=== PATIENT | male | born 1970 | race Caucasian/White ===

== ENCOUNTER 2021-04-22 06:30 | Emergency (ER) | payer MEDICARE, MEDICAID ==
[2021-04-22 08:02] LABS: INR-International Normal Ratio 1.5; Prothrombin Time 18.2 sec (12.0-14.7)
[2021-04-22 08:03] LABS: PTT 41.3 sec (22.9-36.1)
[2021-04-22 08:06] LABS: Hemoglobin 13.1 g/dL (14.0-18.0); Mean Corpuscular HGB CONC 32.5 g/dL (32.0-36.0); Mean Corpuscular Hemoglobin 33.8 pg (27.0-31.0); Mean Platelet Volume 8.5 fL (7.4-10.4); Platelet Count 248 thou/uL (130-400); RBC Distribution Width 16.6 % (11.5-14.5); Red Blood Cell (RBC) Count 3.89 mill/uL (4.70-6.10); White Blood Cell (WBC) Count 7.2 thou/uL (4.8-10.8)
[2021-04-22 08:12] LABS: ALT (SGPT) 64 U/L (8-55); AST (SGOT) 43 U/L (5-34); Albumin 3.4 g/dL (3.5-5.0); Alkaline Phosphatase 26 U/L (40-110); Anion Gap 15 mmol/L (10-20); BUN (Urea Nitrogen) 44 mg/dL (8.4-25.7); Bilirubin, Total 0.4 mg/dL (0.2-1.2); CK (CPK) 159 U/L (30-200); Calc. Creatinine Clearance 0 mL/min (70-130); Calcium 9.2 mg/dL (7.8-10.44); Carbon Dioxide 31 mmol/L (22-29); Chloride 113 mmol/L (98-107); Globulin 4.8 g/dL (2.4-3.5); Glucose 107 mg/dL (70-105); Potassium 4.1 mmol/L (3.5-5.1); Protein, Total 8.2 g/dL (6.0-8.3); Sodium 155 mmol/L (136-145)
[2021-04-22 08:28] LABS: Band 4 % (5-11); Lymphocytes 18 % (21-51); MDiff Complete? YES; Monocytes 8 % (0-10); Myelocyte 1 % (0-0); Neutrophil 69 % (42-75)
[2021-04-22 08:29] LABS: CKMB 1.3 ng/mL (0-6.6)
== END 2021-04-22 10:30 | disposition short-term general hospital (02) ==
LOC: BURERS 06:30
DX: E87.0 Hyperosmolality and hypernatremia (principal); N19 Unspecified kidney failure; R79.89 Other specified abnormal findings of blood chemistry; K13.0 Diseases of lips; I10 Essential (primary) hypertension; E03.9 Hypothyroidism, unspecified; E78.5 Hyperlipidemia, unspecified; N40.0 Benign prostatic hyperplasia without lower urinary tract symptoms; Z87.01 Personal history of pneumonia (recurrent); Z79.899 Other long term (current) drug therapy
CPT/HCPCS: 70450; 71045; 80053; 82550; 82553; 83735; 83880; 84484; 85025; 85610; 85730; 93005; 94760

== ENCOUNTER 2021-05-08 02:06 | Emergency (ER) | payer MEDICARE, MEDICAID ==
[2021-05-08 02:47] LABS: #Basophils 0.1 thou/uL (0.0-0.2); #Lymphocytes 0.5 thou/uL (1.20-3.40); #Monocytes 0.8 thou/uL (0.11-0.59); %Basophils 0.6 % (0.0-1.0); %Eosinophils 0.2 % (0.0-10.0); %Lymphocytes 3.4 % (21.0-51.0); %Monocytes 5.9 % (0.0-10.0); %Neutrophils 89.8 % (42.0-75.0); Hemoglobin 10.5 g/dL (14.0-18.0); Mean Corpuscular HGB CONC 33.9 g/dL (32.0-36.0); Mean Corpuscular Hemoglobin 35.2 pg (27.0-31.0); Mean Platelet Volume 8.3 fL (7.4-10.4); Platelet Count 227 thou/uL (130-400); RBC Distribution Width 15.7 % (11.5-14.5); Red Blood Cell (RBC) Count 2.98 mill/uL (4.70-6.10); White Blood Cell (WBC) Count 13.3 thou/uL (4.8-10.8)
[2021-05-08 02:57] LABS: Anion Gap 20 mmol/L (10-20); BUN (Urea Nitrogen) 29 mg/dL (8.4-25.7); Calc. Creatinine Clearance 0 mL/min (70-130); Calcium 9.1 mg/dL (7.8-10.44); Carbon Dioxide 22 mmol/L (22-29); Chloride 102 mmol/L (98-107); Glucose 176 mg/dL (70-105); Potassium 4.2 mmol/L (3.5-5.1); Sodium 140 mmol/L (136-145)
[2021-05-08 03:28] LABS: Platelet Morphology Comment Appears Adequate; RBC Morphology Normal
[2021-05-08] MEDS ORDERED: Ondansetron PF 4 MG/2 ML Vial ONE (03:39)
[2021-05-08 03:59] LABS: INR-International Normal Ratio 1.3; Prothrombin Time 16.4 sec (12.0-14.7)
[2021-05-08 04:00] LABS: PTT 42.4 sec (22.9-36.1)
[2021-05-08 04:51] LABS: SARS-CoV-2 NAA Rapid Test Not Detected (NotDetected)
== END 2021-05-08 04:18 | disposition short-term general hospital (02) ==
LOC: BURERS 02:06
DX: S36.81XA Injury of peritoneum, initial encounter (principal); I12.9 Hypertensive chronic kidney disease with stage 1 through stage 4 chronic kidney disease, or unspecified chronic kidney disease; N18.9 Chronic kidney disease, unspecified; E03.9 Hypothyroidism, unspecified; E78.5 Hyperlipidemia, unspecified; Z86.718 Personal history of other venous thrombosis and embolism; Z79.899 Other long term (current) drug therapy; Z20.822 Contact with and (suspected) exposure to COVID-19; W06.XXXA Fall from bed, initial encounter
CPT/HCPCS: 70450; 72125; 72192; 80048; 85025; 85610; 85730; U0002; 36415; 51702; 96374; J2405

== ENCOUNTER 2022-01-04 10:19 | Emergency (ER) | payer MEDICARE, MEDICAID ==
[2022-01-04] MEDS ORDERED: Ondansetron PF 4 MG/2 ML Vial ONE (11:15)
[2022-01-04 11:20] LABS: #Basophils 0.1 thou/uL (0.0-0.2); #Lymphocytes 0.8 thou/uL (1.20-3.40); #Monocytes 0.8 thou/uL (0.11-0.59); #Neutrophils 12.7 thou/uL (1.40-6.50); %Basophils 0.8 % (0.0-1.0); %Lymphocytes 5.2 % (21.0-51.0); %Monocytes 5.6 % (0.0-10.0); %Neutrophils 88.3 % (42.0-75.0); Mean Corpuscular HGB CONC 33.6 g/dL (32.0-36.0); Mean Corpuscular Hemoglobin 35.8 pg (27.0-31.0); Mean Platelet Volume 7.3 fL (7.4-10.4); Platelet Count 238 thou/uL (130-400); RBC Distribution Width 13.8 % (11.5-14.5); Red Blood Cell (RBC) Count 3.91 mill/uL (4.70-6.10); White Blood Cell (WBC) Count 14.4 thou/uL (4.8-10.8)
[2022-01-04 11:38] LABS: ALT (SGPT) 15 U/L (8-55); AST (SGOT) 20 U/L (5-34); Albumin 3.6 g/dL (3.5-5.0); Alkaline Phosphatase 24 U/L (40-110); Anion Gap 23 mmol/L (10-20); BUN (Urea Nitrogen) 29 mg/dL (8.4-25.7); Bilirubin, Total 0.5 mg/dL (0.2-1.2); Calc. Creatinine Clearance 0 mL/min (70-130); Calcium 9.5 mg/dL (7.8-10.44); Carbon Dioxide 21 mmol/L (22-29); Chloride 102 mmol/L (98-107); Globulin 4.8 g/dL (2.4-3.5); Glucose 168 mg/dL (70-105); Lipase 13 U/L (8-78); Protein, Total 8.4 g/dL (6.0-8.3); Sodium 142 mmol/L (136-145)
[2022-01-04 11:59] LABS: MDiff Complete? YES; Macrocytosis SLIGHT = 6-15 cells (100X) (0-5/hpf)
[2022-01-04] MEDS ORDERED: Promethazine HCl 25 MG/ML VIAL ONE (12:10)
[2022-01-04 12:28] LABS: Bilirubin Negative (Negative); Blood, Urine Negative (Negative); Clarity Clear (Clear); Glucose, Urine (Dipstick) Negative (Negative); Ketone, Urine Negative (Negative); Leukocyte Small (Negative); Nitrite Negative (Negative); Protein, Urine (Dipstick) Negative (Neg-Trace); Specific Gravity, Urine 1.015 (1.005-1.030); Urobilinogen 0.2 mg/dL (Less than 2)
[2022-01-04 12:32] LABS: Bacteria/HPF 1+ HPF (None Seen); RBC/HPF 0-3 HPF (0-3); Squamous Epithelial 0-3 HPF (0-3)
[2022-01-04] MEDS ORDERED: cefTRIAXone\\ROCEPHIN 2 GM VIAL ONE (13:03)
[2022-01-04] MEDS ORDERED: Sodium Chloride 0.9% 100 ML ONE (13:09)
[2022-01-04 14:49] LABS: Lactic Acid 5.6 mmol/L (0.5-2.2)
== END 2022-01-04 14:52 | disposition short-term general hospital (02) ==
LOC: BURERS 10:19
DX: A41.9 Sepsis, unspecified organism (principal); N39.0 Urinary tract infection, site not specified; R00.0 Tachycardia, unspecified; I44.7 Left bundle-branch block, unspecified; I10 Essential (primary) hypertension; E03.9 Hypothyroidism, unspecified; E78.5 Hyperlipidemia, unspecified; Q90.9 Down syndrome, unspecified; Z86.718 Personal history of other venous thrombosis and embolism
CPT/HCPCS: 36415; 51702; 71045; 74176; 81003; 81015; 83605; 83690; 84484; 87040; 93005; 96361; 96365; 96367; 96375; J0696; J2405; J2550; J3370; J3490